=== PATIENT | female | born 1965 | race American Indian/Alaskan Native ===

== ENCOUNTER 2017-11-23 22:24 | Emergency (ER) | payer OTHER ==
[2017-11-23] MEDS ORDERED: ASPIRIN PO ONE (23:00)
[2017-11-23 23:32] LABS: Hematocrit 37.5 % (30.3-42.9); Hemoglobin 12.6 gm/dl (10.1-14.3); Mean Corpuscular HGB Conc 34 % (30-34); Mean Corpuscular Hemoglobin 32 pg (28-32); Mean Corpuscular Volume 94 fl (79-97); Platelet Count 313 K/mm3 (140-440); Red Cell Distribution Width 12.9 % (13.2-15.2)
[2017-11-23 23:56] LABS: BUN/Creatinine Ratio 23; Blood Urea Nitrogen 9 mg/dL (7-17); Calcium 9.3 mg/dL (8.4-10.2); Hemolysis Index 3
--- NOTE | 2017-11-24 00:38 | Emergency Department Report ---
ED Chest Pain HPI - General Chief Complaint: Chest Pain Stated Complaint: SOB Time Seen by Provider: 11/24/17 00:31 Source: patient Mode of arrival: Ambulatory Limitations: No Limitations - History of Present Illness Initial Comments: Patient is a 52-year-old female presents to emergency with complaints of chest pain shortness of breath 3 days. Patient states that the chest pain shortness of breath or worsening. Patient states chest pain is radiating to her back. Patient states the chest pain is a 6 out of 10. Patient states the chest pain and shortness of breath are better with rest and worse with movement and exertion. Patient denies fever chills. Patient denies diaphoresis. MD Complaint: chest pain -: Sudden Onset: during rest Pain Location: substernal, left chest Pain Radiation: back Severity: moderate Severity scale (0 -10): 6 Quality: tightness, aching, heaviness Consistency: constant Improves With: rest Worsens With: exertion, movement re: dyspnea. denies: nausea, vomting, diaphoresis Other Symptoms: palpitations. denies: cough, fever, syncope, rash, acid taste in mouth, leg swelling, burping Treatments Prior to Arrival: none Aspirin use within the Past 7 Days: (0) No - Related Data On Oral Contraceptives: No Allergies Allergy/AdvReac Type Severity Reaction Status Date / Time No Known Allergies Allergy Verified 11/24/17 00:42 Heart Score - HEART Score History: Slightly suspicious EKG: Normal Age: 45-65 Risk factors: No known risk factors Troponin: < normal limit HEART Score: 1 ED Review of Systems ROS: Stated complaint: SOB Other details as noted in HPI Constitutional: denies: chills, fever Eyes: denies: eye pain, eye discharge, vision change ENT: denies: ear pain, throat pain Respiratory: shortness of breath. denies: cough, wheezing Cardiovascular: chest pain, palpitations Endocrine: no symptoms reported Gastrointestinal: denies: abdominal pain, nausea, diarrhea Genitourinary: denies: urgency, dysuria, discharge Musculoskeletal: denies: back pain, joint swelling, arthralgia Skin: denies: rash, lesions Neurological: denies: headache, weakness, paresthesias Psychiatric: denies: anxiety, depression Hematological/Lymphatic: denies: easy bleeding, easy bruising ED Past Medical Hx - Past Medical History Previous Medical History?: Yes Hx Psychiatric Treatment: Yes (Depression, PTSD, Panic attack) Additional medical history: HLD - Surgical History Past Surgical History?: Yes Additional Surgical History: D&C - Family History Family history: no significant - Social History Smoking Status: Light Tobacco Smoker Substance Use Type: Marijuana ED Physical Exam - General Limitations: No Limitations General appearance: alert, in no apparent distress - Head Head exam: Present: atraumatic, normocephalic - Eye Eye exam: Present: normal appearance - ENT ENT exam: Present: mucous membranes moist - Neck Neck exam: Present: normal inspection - Respiratory Respiratory exam: Present: normal lung sounds bilaterally. Absent: respiratory distress - Cardiovascular Cardiovascular Exam: Present: regular rate, normal rhythm. Absent: systolic murmur, diastolic murmur, rubs, gallop - GI/Abdominal GI/Abdominal exam: Present: soft, normal bowel sounds - Extremities Exam Extremities exam: Present: normal inspection - Back Exam Back exam: Present: normal inspection - Neurological Exam Neurological exam: Present: alert, oriented X3 - Psychiatric Psychiatric exam: Present: normal affect, normal mood - Skin Skin exam: Present: warm, dry, intact, normal color. Absent: rash ED Course Vital Signs 11/23/17 11/23/17 11/24/17 22:44 22:46 02:20 Temperature 98.1 F 98.1 F Pulse Rate 61 62 Respiratory 16 16 Rate Blood Pressure 142/59 142/59 Blood Pressure 142/59 [Left] O2 Sat by Pulse 99 99 97 Oximetry 11/24/17 02:30 Temperature Pulse Rate 59 L Respiratory 15 Rate Blood Pressure 117/96 Blood Pressure [Left] O2 Sat by Pulse 98 Oximetry - Reevaluation(s) Reevaluation #1: Discussed all results with patient. Patient voiced understanding results. Discussed plan of care to admit patient to hospitalist service for further evaluation treatment and rule out ACS. Patient states she does not want to stay in the hospital and wants to go home. Discussed risks with patient. Patient voiced understanding of risks. Patient signed AMA form. Patient signed AMA and left the hospital. 11/24/17 02:41 LAURA score - Laura Score Age > 65: (0) No Aspirin use within the Past 7 Days: (0) No 3 or more CAD Risk Factors: (0) No 2 or more Angina events in past 24 hrs: (1) Yes Known CAD with more than 50% Stenosis: (0) No Elevated Cardiac Markers: (0) No ST Deviation Greater than 0.5mm: (0) No LAURA Score: 1 ED Medical Decision Making - Lab Data Result diagrams: 11/23/17 23:17 11/23/17 23:17 - EKG Data -: EKG Interpreted by Me EKG shows normal: sinus rhythm, axis, intervals, QRS complexes, ST-T waves Rate: bradycardia - Radiology Data Radiology results: report reviewed FINDINGS: Heart borderline to mildly enlarged. Thoracic aorta is normal in caliber. No acute dissection or rupture. Mild calcification aortic arch. No pulmonary embolus. There few nonenlarged reactive intrathoracic lymph nodes. No enlarged axillary lymph nodes. There enlargement of visualized thyroid gland without dominant nodule. Tracheobronchial tree is patent. Mild linear atelectasis mid to lower lungs. No large airspace consolidation or pleural effusion. Indeterminate hypodense lesion within the medial segment of the left hepatic lobe measuring 1.8 x 1.0 centimeters. This appears to have peripheral nodular enhancement and may reflect a benign hemangioma (series 2, image 102). There is a hypodense lesion within the right hepatic lobe measuring 7 x 6 millimeters. This could reflect a small cyst or hemangioma. Mild degenerative changes of the thoracic spine. IMPRESSION: No pulmonary embolus. Heart borderline to mildly enlarged. Thoracic aorta normal in caliber. No acute dissection or rupture. Mild nonspecific linear atelectasis mid to lower lungs. No dense airspace consolidation or pleural effusion. Transcribed By: LMA Dictated By: KAREN BONE MD Electronically Authenticated By: KAREN BONE MD Signed Date/Time: 11/24/17 0230 - Medical Decision Making Patient 2-year-old female presents emergency room with complaints of chest pain shortness of breath. Patient's initial cardiac workup was negative. Patient's CT of the chest was negative. Labs unremarkable. Discussed all results with patient. Discussed plan of care to admit patient to the hospitalist service and patient refused and wants to sign out AMA. They signed. Discussed risk with patient. Patient voiced understanding of risk of leaving the hospital AGAINST MEDICAL ADVICE. - Differential Diagnosis cp. acs. sob. pe. anx. gerd Critical care attestation.: If time is entered above; I have spent that time in minutes in the direct care of this critically ill patient, excluding procedure time. ED Disposition Clinical Impression: SOB (shortness of breath) Chest pain Qualifiers: Chest pain type: unspecified Qualified Code(s): R07.9 - Chest pain, unspecified Disposition: DC-07 LEFT AGAINST MED ADVICE Is pt being admited?: No Does the pt Need Aspirin: No Condition: Undetermined Referrals: PRIMARY CARE, [Primary Care Provider] - 3-5 Days Time of Disposition: 02:40
[2017-11-24] MEDS ORDERED: ASPIRIN ONE (02:29)
--- NOTE | 2017-11-24 02:32 | Cat Scan Report ---
FINAL REPORT EXAM: CT ANGIO CHEST HISTORY: cp. sob. COMPARISON: None available. TECHNIQUE: Contiguous axial images were obtained. Additional sagittal and coronal reformatted images were obtained. Administration of IV contrast given per institution protocol. Images submitted for interpretation. 100 cc Omnipaque [id number]. Max intensity projection images. FINDINGS: Heart borderline to mildly enlarged. Thoracic aorta is normal in caliber. No acute dissection or rupture. Mild calcification aortic arch. No pulmonary embolus. There few nonenlarged reactive intrathoracic lymph nodes. No enlarged axillary lymph nodes. There enlargement of visualized thyroid gland without dominant nodule. Tracheobronchial tree is patent. Mild linear atelectasis mid to lower lungs. No large airspace consolidation or pleural effusion. Indeterminate hypodense lesion within the medial segment of the left hepatic lobe measuring 1.8 x 1.0 centimeters. This appears to have peripheral nodular enhancement and may reflect a benign hemangioma (series 2, image 102). There is a hypodense lesion within the right hepatic lobe measuring 7 x 6 millimeters. This could reflect a small cyst or hemangioma. Mild degenerative changes of the thoracic spine. IMPRESSION: No pulmonary embolus. Heart borderline to mildly enlarged. Thoracic aorta normal in caliber. No acute dissection or rupture. Mild nonspecific linear atelectasis mid to lower lungs. No dense airspace consolidation or pleural effusion.
[2017-11-24 02:33] VITALS: BP 117/96
[2017-11-24 03:31] LABS: Total Cells Counted 100
[2017-11-24 03:32] LABS: RBC Morphology Normal
== END 2017-11-24 02:46 | disposition left against medical advice (07) ==
LOC: ED 22:24
DX: R07.89 Other chest pain (principal); R06.02 Shortness of breath; F17.200 Nicotine dependence, unspecified, uncomplicated; F12.90 Cannabis use, unspecified, uncomplicated
CPT/HCPCS: 36415; 71275; 80048; 84484; 85007; 85025; 93005; 93010; 99285; Q9967

== ENCOUNTER 2021-09-09 18:08 | Emergency (ER) | payer OTHER | END 2021-09-09 22:55 | disposition left against medical advice (07) | LOC: ED 18:08 | DX: R07.9 Chest pain, unspecified (principal); R06.02 Shortness of breath; Z53.21 Procedure and treatment not carried out due to patient leaving prior to being seen by health care provider ==